=== PATIENT | female | born 1975 | race Caucasian/White ===

== ENCOUNTER 2018-06-23 15:53 | Emergency (ER) | payer SELFPAY ==
[~2018-06-23] VITALS: Ht 167.6 cm; Wt 61.8 kg
[2018-06-23 16:14] VITALS: Ht 167.6 cm; Wt 61.8 kg
[2018-06-23 18:10] VITALS: BP 122/82
== END 2018-06-23 18:10 | disposition home or self-care (01) ==
LOC: ED 15:53
DX: K59.00 Constipation, unspecified (principal)
CPT/HCPCS: J7030